=== PATIENT | female | born 1955 | race African-American/Black ===

== ENCOUNTER 2017-11-02 09:14 | Emergency (ER) | payer MEDICARE, MEDICAID ==
[~2017-11-02] VITALS: Ht 165.1 cm; Wt 83.8 kg
[2017-11-02] MEDS ORDERED: IBUPROFEN 600MG TABLET PO ONE (13:00)
[2017-11-02 13:04] VITALS: BP 120/70
== END 2017-11-02 14:53 | disposition home or self-care (01) ==
LOC: ER 11:54
DX: M25.562 Pain in left knee (principal); M25.561 Pain in right knee; W10.0XXA Fall (on)(from) escalator, initial encounter; Y93.89 Activity, other specified; Y92.59 Other trade areas as the place of occurrence of the external cause; F17.210 Nicotine dependence, cigarettes, uncomplicated
CPT/HCPCS: 73562; 99284